=== PATIENT | female | born 1985 | race Hispanic/Latino ===

== ENCOUNTER 2018-01-03 16:36 | Emergency (ER) | payer MEDICAID, OTHER ==
[2018-01-03] MEDS ORDERED: KETOROLAC TROMETHAMINE 60 MG/2 ML VIAL ONE (16:48)
== END 2018-01-03 17:26 | disposition home or self-care (01) ==
LOC: EDH 16:36
DX: S93.491A Sprain of other ligament of right ankle, initial encounter (principal); I10 Essential (primary) hypertension; Z72.0 Tobacco use; Z98.890 Other specified postprocedural states; W01.0XXA Fall on same level from slipping, tripping and stumbling without subsequent striking against object, initial encounter; Y93.89 Activity, other specified; Y92.89 Other specified places as the place of occurrence of the external cause; Y99.8 Other external cause status
CPT/HCPCS: 73610; 73630; 96372; 99284; J1885

== ENCOUNTER 2019-02-05 10:19 | Emergency (ER) | payer OTHER | END 2019-02-05 10:46 | disposition home or self-care (01) | LOC: EDH 10:19 | DX: H65.191 Other acute nonsuppurative otitis media, right ear (principal); I10 Essential (primary) hypertension; E07.9 Disorder of thyroid, unspecified; Z72.0 Tobacco use ==

== ENCOUNTER 2023-02-28 13:58 | Emergency (ER) | payer OTHER ==
[~2023-02-28] VITALS: Ht 152.4 cm; Wt 99.8 kg
[2023-02-28 14:58] LABS: BASOPHILS % (AUTO) 0.4 % (0.0-5.0); HEMATOCRIT 33.6 % (36-48); LYMPHOCYTES % (AUTO) 27.1 % (21.0-51.0); MEAN CORPUSCULAR HEMOGLOBIN 21.7 pg (27.0-33.0); MEAN CORPUSCULAR HGB CONC 31.3 g/dL (32.0-36.0); MEAN CORPUSCULAR VOLUME 69.6 fL (79-99); MONOCYTES % (AUTO) 6.7 % (3.0-13.0); NEUTROPHILS % (AUTO) 63.1 % (40.0-77.0); PLATELET COUNT (AUTO) 426 K/uL (130-400); RED BLOOD CELL COUNT(AUTO) 4.83 MIL/uL (4.00-5.50); RED CELL DISTRIBUTION WIDTH 16.6 % (11.0-15.5); WHITE BLOOD COUNT (AUTO) 8.4 K/uL (4.8-10.8)
[2023-02-28 15:19] LABS: ALBUMIN 3.5 g/dL (3.5-5.0); CREATININE 0.8 mg/dL (0.5-1.5); POTASSIUM 4.1 mmol/L (3.5-5.1)
[2023-02-28 16:19] LABS: HCG,QUALITATIVE URINE NEGATIVE (NEGATIVE)
[2023-02-28 16:25] LABS: APPEARANCE,URINE CLEAR (CLEAR); BILIRUBIN,URINE NEGATIVE (NEGATIVE); COLOR,URINE LIGHT-YELLOW (YELLOW); GLUCOSE, URINE (UA) >=1000 mg/dL (NEGATIVE); KETONES,URINE NEGATIVE (NEGATIVE); LEUKOCYTE ESTERASE ,URINE NEGATIVE Leu/uL (NEGATIVE); NITRATE,URINE NEGATIVE (NEGATIVE); OCCULT BLOOD,URINE SMALL (NEGATIVE); PROTEIN,URINE NEGATIVE (NEGATIVE); UROBILINOGEN,URINE 0.2 mg/dL (0.2-1.0)
[2023-02-28 16:30] LABS: SQUAMOUS EPITHELIAL CELL,UR FEW /HPF (0-2)
[2023-02-28] MEDS ORDERED: METOCLOPRAMIDE 10 MG/2 ML VIAL IVP ONE (17:30)
[2023-02-28] MEDS ORDERED: ONDANSETRON 4MG INJ IVP ONE (17:30)
[2023-02-28] MEDS ORDERED: 0.9%NACL 1000ML 1,000 ML IV ONE (17:30)
[2023-02-28] MEDS ORDERED: DiphenhydrAMINE HCL 50 MG/ML VIAL IV ONE (17:30)
[2023-02-28] MEDS ORDERED: INSULIN HUMULIN R 100 UNIT/ML 3ML IV ONE (17:30)
[2023-02-28] MEDS ORDERED: LIDOCAINE HCL 1% 20 ML VIAL ONE (18:24)
[2023-02-28] MEDS ORDERED: IOHEXOL 350 MG/ML 100ML INFUS..BTL IV ONE (19:10)
[2023-02-28] MEDS ORDERED: IOHEXOL-350 75 ML VIAL IV ONE (19:45)
[2023-02-28 19:48] LABS: APPEARANCE,CSF CLEAR (CLEAR); COLOR,CSF COLORLESS (COLORLESS); CSF TUBE NUMBER 1
[2023-02-28 19:49] LABS: WHITE BLOOD CELL1,CSF 3 CMM (0-5)
[2023-02-28 19:53] LABS: GLUCOSE, CSF 144 mg/dL (40-70); RED BLOOD CELL1,CSF 19 CMM (0-0); TOTAL PROTEIN, CSF 19 mg/dL (15-45)
[2023-02-28 19:58] LABS: APPEARANCE2,CSF CLEAR (CLEAR); COLOR2,CSF COLORLESS (COLORLESS); CSF 2ND TUBE NUMBER 4
[2023-02-28] MEDS ORDERED: KETOROLAC 30MG VIAL (30MG/ML) IVP ONE (22:00)
[2023-02-28] MEDS ORDERED: IBUP-1493 PO (22:11)
[2023-02-28 22:51] VITALS: BP 140/82
== END 2023-02-28 23:17 | disposition home or self-care (01) ==
LOC: EDH 14:40
DX: G43.909 Migraine, unspecified, not intractable, without status migrainosus (principal); E10.65 Type 1 diabetes mellitus with hyperglycemia; Z01.818 Encounter for other preprocedural examination
CPT/HCPCS: 62270; 99285; 70496; 96374; 96375; 82945; 84157; 80053; 85025; 89051 ×2; 87071; 87205; 81001; 81025; 36415; 82948; 70450; J1815; J1200; J7030; J2405; J1885; J2765; Q9967

== ENCOUNTER 2024-01-20 16:11 | Emergency (ER) | payer OTHER ==
[~2024-01-20] VITALS: Ht 152.4 cm; Wt 102.1 kg
[~2024-01-20 16:11] MED LIST: IBUP-1493 PO
[2024-01-20 16:37] LABS: BASOPHILS # (AUTO) 0.04 K/uL (0.00-0.20); BASOPHILS % (AUTO) 0.3 % (0.0-5.0); EOSINOPHILS # (AUTO) 0.12 K/uL (0.00-0.70); HEMATOCRIT 32.1 % (36-48); IMMATURE GRANULOCYTE ABSOLUTE 0.12 K/uL (0-1); LYMPHOCYTES # (AUTO) 3.5 K/uL (1.0-4.8); LYMPHOCYTES % (AUTO) 28.6 % (21.0-51.0); MEAN CORPUSCULAR HEMOGLOBIN 21.7 pg (27.0-33.0); MEAN CORPUSCULAR HGB CONC 30.5 g/dL (32.0-36.0); MONOCYTES # (AUTO) 0.7 K/uL (0.1-1.0); MONOCYTES % (AUTO) 5.9 % (3.0-13.0); NEUTROPHILS # (AUTO) 7.7 K/uL (1.8-7.7); NEUTROPHILS % (AUTO) 63.2 % (40.0-77.0); PLATELET COUNT (AUTO) 391 K/uL (130-400); RED BLOOD CELL COUNT(AUTO) 4.52 MIL/uL (4.00-5.50); RED CELL DISTRIBUTION WIDTH 16.5 % (11.0-15.5); WHITE BLOOD COUNT (AUTO) 12.2 K/uL (4.8-10.8)
[2024-01-20] MEDS: KETOROLAC 15MG/ML VIAL (15MG/ML) IV ONE (16:43)
[2024-01-20] MEDS: SOLU-MEDROL 125MG VIAL IVP ONE (16:44)
[2024-01-20 16:49] LABS: CREATININE 0.7 mg/dL (0.5-1.5)
[2024-01-20 17:00] LABS: ALBUMIN 3.3 g/dL (3.5-5.0); BILIRUBIN,TOTAL 0.2 mg/dL (0.2-1.0); TOTAL PROTEIN, SERUM 7.8 g/dL (6.0-8.3)
[2024-01-20] MEDS: HYDRALAZINE 20MG/ML VIAL IV ONE (17:50)
[2024-01-20] MEDS: 0.9% NACL 500ML IV.SOLN 500 ML IV SCH (17:51)
[2024-01-20] MEDS: ONDANSETRON 4MG INJ IVP ONE (17:51)
[2024-01-20] MEDS: INSULIN HUMULIN R 100 UNIT/ML 3ML IV ONE (18:25)
[2024-01-20] MEDS: NITROGLYCERIN 1GM OINT 1 INCH/1GM TD ONE (19:49)
[2024-01-20 20:26] VITALS: BP 152/89; PULSE 84; RESP 20; O2SAT 96
== END 2024-01-20 20:34 | disposition home or self-care (01) ==
LOC: EDH 16:11
DX: R20.0 Anesthesia of skin (principal); D64.9 Anemia, unspecified; M47.22 Other spondylosis with radiculopathy, cervical region; I10 Essential (primary) hypertension; E11.65 Type 2 diabetes mellitus with hyperglycemia; E03.9 Hypothyroidism, unspecified
CPT/HCPCS: 99285; 96374; 96375; 71045; 84484; 80053; 85025; 36415; 72040; 73030; 93005; J1815; J7040; J2930; J0360; J2405; J1885

== ENCOUNTER → 2025-09-02 | Emergency (ER) | payer BC ==
[~2025-09-02] VITALS: Ht 152.4 cm; Wt 99.8 kg
[~2025-09-02] MED LIST changes: +CALC-1125 PO; +CLON0.1T PO; +ENAL-87 PO; +GLIP5TAB15 PO; +HYDR25TA PO; +INSU100I3 SQ; +INSU3INS3 SQ; +LOSA50TA64 PO; +METF-444 PO
--- NOTE | 2025-09-02 18:02 | ERN ---
ED Note History of Present Illness Stated Complaint: HYPERGLYCEMIA AND HYPERTENSION Chief Complaint: Blood Sugar Problem Time Seen by MD: 17:54 Dictation: PATIENT IS A 40-YEAR-OLD FEMALE COMING IN TODAY WITH COMPLAINTS OF ELEVATED BLOOD PRESSURE ONSET THIS MORNING. SHE STATES SHE TAKE"TWO DIFFERENT INSULINS AND METFORMIN HOWEVER SHE COULD NOT GIVE ME THE DOSE OR THE NAMES. HE SAID I D O NOT HAVE THOSE MEMORIZED ON-CALL. NAUSEA VOMITING NO SOB. Allergies: Coded Allergies: vancomycin (Verified Allergy, Intermediate, Rash, 07/20/24) No Known Allergies (Verified Allergy, Unknown, 07/20/24) Home Meds Active Scripts Insulin Aspart (Novolog Flexpen) 100 Unit/Ml (3 Ml) Insuln.pen, 15 UNITS SQ TIDAC for 30 Days, #1 SYRINGE Prov:CAIT SQUIRES 07/25/24 Insulin Glargine,Hum.rec.anlog (Lantus Solostar) 100 Unit/Ml (3 Ml) Insuln.pen, 40 UNIT SQ DAILY for 30 Days, #1 SYRINGE Prov:CAIT SQUIRES 07/25/24 Ibuprofen (Motrin/Advil) 800 Mg Tab, 800 MG PO TID, #30 TAB Prov:HILARY YUEN MD 02/28/23 Reported Medications Hydrochlorothiazide (Hydrochlorothiazide) 25 Mg Tablet, 25 MG PO DAILY, TAB 07/20/24 Losartan Potassium (Losartan Potassium) 50 Mg Tablet, 50 MG PO DAILY, TAB 07/20/24 Clonidine HCl (Clonidine HCl) 0.1 Mg Tablet, 0.1 MG PO BID, TAB 07/20/24 Metformin HCl (Metformin HCl) 500 Mg Tablet, 500 MG PO BID, TAB 07/20/24 Glipizide (Glipizide) 5 Mg Tablet, 5 MG PO BID, TAB 07/20/24 Past Medical History Past Medical History: Diabetes-Type II, Hypertension Additional Past Medical Hx: THYROID Surgical History: None History: Not Applicable RN Note Reviewed/Agreed w/PFSH: Yes Review of System Dictation CONSTITUTIONAL: NEGATIVE EXCEPT FOR HPI HEAD/FACE: NEGATIVE EXCEPT FOR HPI EENT: NEGATIVE EXCEPT FOR HPI RESPIRATORY: NEGATIVE EXCEPT FOR HPI GASTROINTESTINAL/ABDOMINAL: NEGATIVE EXCEPT FOR HPI GENITOURINARY: NEGATIVE EXCEPT FOR HPI MUSCULOSKELETAL: NEGATIVE EXCEPT FOR HPI INTEGUMENTARY: NEGATIVE EXCEPT FOR HPI NEUROLOGICAL/PSYCH: NEGATIVE EXCEPT FOR HPI HEMATOLOGIC/LYMPHATIC: NEGATIVE EXCEPT FOR HPI ALL SYSTEMS NEGATIVE, EXCEPT NOTED ABOVE. 13 POINT REVIEW OF SYSTEMS ASSESSED AND ALL NEGATIVE EXCEPT FOR ABOVE. Initial Vital Sign VS Vital Signs Date Time Temp Pulse Resp B/P (MAP) Pulse Ox O2 Delivery O2 Flow Rate FiO2 09/02/25 17:54 99.0 90 20 146/85 98 Room Air 09/02/25 21:13 0 21 Physical Exam Dictation VITAL SIGNS REVIEWED GENERAL APPEARANCE: ALERT, ORIENTED X 3, NO ACUTE DISTRESS, WELL DEVELOPED, NOURISHED. OBESE HEAD AND FACE: NON-TRAUMATIC. EYES: PERRL, PINK CONJUNCTIVAS, EYELID NO TRAUMA, ANTERIOR CHAMBER WITH ARCUS SENILIS. EARS: PINNAS INTACT AND NO SIGNS OF TRAUMA OR ERYTHEMA EAR CANALS CLEAR AND NO DISCHARGE TM NO ERYTHEMA NOSE: NO DISCHARGE, NO BLEEDING. OROPHARYNX: MOUTH NORMAL, TONGUE PINK, PHARYNX CLEAR,NO ERYTHEMA, TONSILS NO EXUDATES, NO ABSCESSES NOTED, MUCOUS MEMBRANE MOIST NECK: SUPPLE, NON-TENDER, NO THYROMEGALY, NO MASSES, NO JVD, NO BRUITS BREAST:DEFERRED CHEST:NO TENDERNESS, NO CREPITUS, NO PARADOXICAL MOVEMENT, NO RETRACTIONS LUNGS:CLEAR, WELL-VENTILATED, SYMMETRIC, NO RALES, NO WHEEZING, NO RHONCHI, NO STRIDOR, GOOD BREATH SOUNDS BILATERALLY HEART: REGULAR RATE, REGULAR RHYTHM, NO MURMUR, NO GALLOPS VASCULAR: NO PERIPHERAL EDEMA, ABDOMEN: SOFT, POSITIVE BOWEL SOUNDS, NONDISTENDED, NO GUARDING, NONTENDER, NO REBOUND, NO MASSES NO HEPATOMEGALY, NO SPLENOMEGALY, NO ARRIAGA'S SIGN, NO HERNIAS. RECTAL: DEFERRED GENITAL: DEFERRED NEUROLOGICAL: NORMAL SPEECH, MOTOR FUNCTION INTACT, SENSORY FUNCTION INTACT MUSCULOSKELETAL: NECK NONTENDER, FULL RANGE OF MOTION, BACK NONTENDER, FULL RANGE OF MOTION, EXTREMITIES: NONTENDER, FULL RANGE OF MOTION SKIN: COLOR PINK, DRY, NO TURGOR, NO RASH, NO LACERATIONS, NO ABRASIONS, NO CONTUSIONS. LYMPHATIC: DEFERRED Results (Laboratory/Radiology) Laboratory/Radiology Laboratory Tests Test 09/02/25 18:16 09/02/25 20:06 09/02/25 21:27 White Blood Count 9.2 K/uL (4.8-10.8) Red Blood Count 4.65 MIL/uL (4.00-5.50) Hemoglobin 9.7 g/dL (12.0-16.0) L Hematocrit 31.1 % (36-48) L Mean Corpuscular Volume 66.9 fL (79-99) L Mean Corpuscular Hemoglobin 20.9 pg (27.0-33.0) L Mean Corpuscular Hemoglobin Concent 31.2 g/dL (32.0-36.0) L Red Cell Distribution Width 17.5 % (11.0-15.5) H Platelet Count 301 K/uL (130-400) Mean Platelet Volume 9.7 fL (7.5-10.5) Immature Granulocyte % (Auto) 0.7 % (0-1) Neutrophils (%) (Auto) 73.0 % (40.0-77.0) Lymphocytes (%) (Auto) 19.7 % (21.0-51.0) L Monocytes (%) (Auto) 5.4 % (3.0-13.0) Eosinophils (%) (Auto) 1.0 % (0.0-8.0) Basophils (%) (Auto) 0.2 % (0.0-5.0) Neutrophils # (Auto) 6.7 K/uL (1.8-7.7) Lymphocytes # (Auto) 1.8 K/uL (1.0-4.8) Monocytes # (Auto) 0.5 K/uL (0.1-1.0) Eosinophils # (Auto) 0.09 K/uL (0.00-0.70) Basophils # (Auto) 0.02 K/uL (0.00-0.20) Absolute Immature Granulocyte (auto 0.06 K/uL (0-1) Nucleated Red Blood Cells 0.0 % (0.0-0.19) Red Blood Cell Morphology See comments Sodium Level 134 mmol/L (136-145) L Potassium Level 4.0 mmol/L (3.5-5.1) Chloride Level 97 mmol/L (101-111) L Carbon Dioxide Level 27 mmol/L (21-32) Blood Urea Nitrogen 13 mg/dL (7-18) Creatinine 0.6 mg/dL (0.5-1.0) Glomerular Filtration Rate Calc 115 mL/min (>90) Random Glucose 332 mg/dL (70-105) H Whole Blood Ketones Quantitative 0.1 mmol/L (0.0-0.6) Total Calcium 8.2 mg/dL (8.5-10.1) L Whole Blood Glucose 340 MG/DL (70-110) H 210 MG/DL (70-110) H Labs Reviewed?: Yes ED Course ED Course Orders Procedure Category Date Status Time Ketone Blood LAB 09/02/25 Complete Quantitative 18:00 Bedside Glucose CPOE 09/02/25 Transmitted Fingerstick 18:00 Cbc With Differential LAB 09/02/25 Complete 18:00 Urinalysis Profile LAB 09/02/25 Logged 18:00 0.9%Nacl 1000ml (Ns PHA 09/02/25 Complete 1000ml) 18:00 Basic Metabolic Panel LAB 09/02/25 Complete 18:00 Insulin Regular, PHA 09/02/25 Complete Human 3ml (Humulin R 18:53 Bedside Glucose CPOE 09/02/25 Transmitted Fingerstick 20:00 Current Medications Medications (Trade) Dose Ordered Sig/Kim Route PRN Reason Start Time Stop Time Status Last Admin Dose Admin Insulin Human Regular (humuLIN R 100 UNIT/ML 3ML) 10 unit ONCE STAT IV 09/02/25 18:53 09/02/25 18:56 DC 09/02/25 20:36 Sodium Chloride 1,000 ml @ 0 mls/hr ONCE ONCE IV 09/02/25 18:00 09/02/25 18:04 DC 09/02/25 20:33 Vital Signs Date Time Temp Pulse Resp B/P (MAP) Pulse Ox O2 Delivery O2 Flow Rate FiO2 09/02/25 21:13 82 17 166/95 97 Room Air* 0 21 09/02/25 17:54 99.0 90 20 146/85 98 Room Air 2135/REPEAT BLOOD SUGAR 210 AFTER FLUIDS AND 10 UNITS HUMULIN REGULAR INCH IV PUSH. PATIENT WILL BE DISCHARGED HOME WITH BENIGN HYPERTENSION AND DIABETES WITH HYPER GLYCEMIA TOLD SEE YOUR PRIMARY CARE DOCTOR FRIDAY FOR FOLLOW UP AND MANAGEMENT Medical Decision Making MDM MDM: DIFFERENTIAL DIAGNOSIS: DIABETIC KETOACIDOSIS/UNCONTROLLED DIABETES/ELECTROLYTE IMBALANCE/DEHYDRATION/HYPERTENSION RATIONALE: TESTS CONSIDERED AND ORDERED SECONDARY TO SHARED DECISION MAKING INCLUDE: LABS PREVIOUS OUTSIDE RECORDS REVIEWED: OLD ER VISITS. RISK OF COMPLICATION AND/OR MORBIDITY OR MORTALITY OF PATIENT MANAGEMENT: NONE MEDICATIONS-PER MEDICATION RECONCILIATION NEED FOR HOSPITALIZATION: PATIENT DOES NOT MEET CRITERIA FOR HOSPITALIZATION. NONE NEED FOR EMERGENCY MAJOR/MINOR SURGERY: NO THERE ARE NO SOCIAL CONCERNS WITH THIS PATIENT. PRESCRIPTION DRUG MANAGEMENT PRESCRIPTIONS WILL INCLUDE SYMPTOMATIC CARE PATIENT'S PRIOR EXTERNAL MEDICAL RECORDS FROM OTHER ER VISITS WERE REVIEWED BY ME INDICATED. PRIOR TESTING AND RESULTS FROM PREVIOUS VISITS WERE REVIEWED. PRIOR TESTS WERE TAKEN INTO ACCOUNT WITH MEDICAL DECISION MAKING AND RESOURCE UTILIZATION, INDEPENDENT HISTORIAN/HISTORIANS WERE USED TO OBTAIN COMPLETE MEDICAL HISTORY. I INDEPENDENTLY INTERPRETED THE TEST THAT WERE PERFORMED, RESULTS WERE REVIEWED BY ME AND CONSIDERED FINDINGS ON RADIOLOGY IF ORDERED. MEDICAL MANAGEMENT AND EXAMINATION INTERPRETATION DISCUSSIONS WERE HAD BY ME WITH OTHER QUALIFIED HEALTHCARE PROFESSIONALS INDICATED FOR THE PATIENT'S CARE. DX & DISP Disposition: Discharge Departure Impression: Primary Impression: Diabetes mellitus with hyperglycemia Additional Impressions: Hyponatremia, Hypochloremia, Hypocalcemia, Benign hypertension Condition: Stable Scripts Calcium Carbonate (Calcium) 600 Mg Calcium (1500 Mg) Tablet 600 MG PO BID for 5 Days, #10 TAB Prov: DENISE ELLIOTT 09/02/25 Enalapril Maleate (Enalapril Maleate) 5 Mg Tablet 1 TAB PO DAILY for 30 Days, #30 TAB 0 Refills Prov: DENISE ELLIOTT 09/02/25 Additional Instructions: Follow-up with primary care provider in 1 to 2 days. Take medications as directed here in the emergency room. Okay to continue home medications unless otherwise discussed during your visit in the emergency room today. Return to your nearest emergency room if symptoms worsen or if there is no improvement. Call 911 if you need immediate assistance. Take Tylenol or Motrin [id number] as needed and if no contraindications are present. Increase oral hydration. A wound culture or urine culture was ordered here in the emergency room department please follow-up with primary care provider and advise them to get repeat ports from our facility. If you had any Isreal wrap/splints that were applied here, please do not remove them until you see your primary care or specialty. Take enalapril as directed daily for your blood pressure. Take calcium replacement twice a day as directed for the next five days. See your primary care doctor on Friday without fail for follow up and management on your diabetic management and your blood pressure. Referrals: SELF,REFERRAL (PCP) Time of Disposition: 21:38 I have reviewed the case, and I agree with, Diagnosis and Plan DENISE ELLIOTT Sep 02, 2025 18:02
[2025-09-02 18:27] LABS: IMMATURE GRANULOCYTE ABSOLUTE 0.06 K/uL (0-1); NUCLEATED RED BLOOD CELLS 0.0 % (0.0-0.19); PLATELET COUNT (AUTO) 301 K/uL (130-400); RED BLOOD CELL COUNT(AUTO) 4.65 MIL/uL (4.00-5.50); RED CELL DISTRIBUTION WIDTH 17.5 % (11.0-15.5); WHITE BLOOD COUNT (AUTO) 9.2 K/uL (4.8-10.8)
[2025-09-02 18:44] LABS: CREATININE 0.6 mg/dL (0.5-1.0); GLOMERULAR FILTR. RATE CALC 115.0 mL/min (>90); GLUCOSE,RANDOM 332.0 mg/dL (70-105); SODIUM SERUM 134.0 mmol/L (136-145); UREA NITROGEN, BLOOD 13.0 mg/dL (7-18)
--- NOTE | 2025-09-02 19:43 | NUR ---
PATIENT NOT IN ED LOBBY WHEN CALLED
--- NOTE | 2025-09-02 20:02 | NUR ---
PT CAME TO TRIAGE WINDOW. STATES SHE CHECKED HER GLUCOSE IN LOBBY AND GOT A READING OF 476. C/O GBW AND NAUSEA PT BROUGHT INTO TRAIGE TO OBTAIN FINGER STICK.
--- NOTE | 2025-09-02 20:06 | NUR ---
GLUCOSE IN TRIAGE 340
[2025-09-02] MEDS: 0.9%NACL 1000ML 1,000 ML IV ONE (20:33)
[2025-09-02 21:56] VITALS: BP 133/65; PULSE 89; RESP 18; TEMP 98.5; O2SAT 100
[2025-09-02 22:07] LABS: APPEARANCE,URINE CLOUDY (CLEAR); GLUCOSE, URINE (UA) >=1000 mg/dL (NEGATIVE); LEUKOCYTE ESTERASE ,URINE 75 Leu/uL (NEGATIVE); NITRATE,URINE NEGATIVE (NEGATIVE); OCCULT BLOOD,URINE NEGATIVE (NEGATIVE)
[2025-09-02 22:08] LABS: ADD UA MICROSCOPIC YES
[2025-09-02 22:10] LABS: SQUAMOUS EPITHELIAL CELL,UR MANY /HPF (0-2)
== END ==
LOC: EDH 17:49
DX: E11.65 Type 2 diabetes mellitus with hyperglycemia (principal); I10 Essential (primary) hypertension; E87.1 Hypo-osmolality and hyponatremia; E83.51 Hypocalcemia; E87.8 Other disorders of electrolyte and fluid balance, not elsewhere classified; Z88.1 Allergy status to other antibiotic agents; Z79.1 Long term (current) use of non-steroidal anti-inflammatories (NSAID); Z79.4 Long term (current) use of insulin; Z79.84 Long term (current) use of oral hypoglycemic drugs; Z79.899 Other long term (current) drug therapy
CPT/HCPCS: 99284; 96374; 80048; 85025; 87086 ×2; 87186; 82948 ×2; 82010; 81001; 36415; J1815; J7030